=== PATIENT | female | born 1930 | race Caucasian/White ===

== ENCOUNTER 2017-06-25 15:43 | Observation (INO) | payer MEDICARE ==
[2017-06-25] MEDS ORDERED: MECLIZINE 12.5 MG TAB PO STA (16:48)
[2017-06-25] MEDS ORDERED: SODIUM CHLORIDE 0.9% 1,000 ML IV STA (16:48)
[2017-06-25] MEDS ORDERED: LORazepam 2 MG/ML INJ IV STA (16:48)
[2017-06-25 17:21] LABS: Basophils # (A) 0.1 k/uL (0-0.2); Basophils % (A) 1 %; CH 32.1; CHCM 34.3; Eosinophils # (A) 0.2 k/uL (0-0.7); Eosinophils % (A) 3 %; HCT 44.6 % (34.0-46.0); HDW 2.52; HGB 14.8 gm/dL (11.4-16.0); Luc # (Auto) 0.21; Luc % (Auto) 3; Lymphocytes # (A) 2.1 k/uL (1.0-4.8); Lymphocytes % (A) 30 %; MCH 31.1 pg (25.0-35.0); MCHC 33.1 g/dL (31.0-37.0); MCV 94.1 fL (80.0-100.0); Mean Platelet Volume 7.4; Monocytes # (A) 0.4 k/uL (0-1.0); Monocytes % (A) 6 %; Neutrophils # (A) 4.1 k/uL (1.3-7.7); Neutrophils % (A) 57 %; RBC 4.74 m/uL (3.80-5.40); RDW 14.3 % (11.5-15.5); WBC 7.2 k/uL (3.8-10.6); WBC (Perox) 7.32
[2017-06-25 17:26] LABS: ALT 34 U/L (9-52); AST 29 U/L (14-36); Alkaline Phosphatase 85 U/L (38-126); Anion Gap 11 mmol/L; Blood Urea Nitrogen 16 mg/dL (7-17); Calcium 10.3 mg/dL (8.4-10.2); Carbon Dioxide 26 mmol/L (22-30); Chloride 102 mmol/L (98-107); Glucose 109 mg/dL (74-99); Non-African American GFR(MDRD) >60 (>60 ml/min/1.73 sqM); Potassium 4.7 mmol/L (3.5-5.1); Sodium 139 mmol/L (137-145); Total Bilirubin 0.8 mg/dL (0.2-1.3); Total Protein 7.7 g/dL (6.3-8.2)
[2017-06-25] MEDS: ONDANSETRON 4 MG/2 ML VIAL IVP STA ×2 (17:26→17:45)
[2017-06-25 17:39] LABS: Creatine Kinase 141 U/L (30-135)
[2017-06-25 17:52] LABS: Troponin I <0.012 ng/mL (0.000-0.034)
[2017-06-25 17:59] LABS: Creatine Kinase MB 3.7 ng/mL (0.0-2.4)
--- NOTE | 2017-06-25 18:15 | CT ---
EXAMINATION TYPE: CT brain wo con DATE OF EXAM: 06/25/2017 COMPARISON: NONE HISTORY: Dizziness with nausea. CT DLP: 986.80 mGycm Automated exposure control for dose reduction was used. FINDINGS: There is cerebral cortical atrophy. There is no mass effect nor midline shift. There is no sign of in tracranial hemorrhage. There is minimal mucosal thickening in the posterior ethmoid sinus. Calvarium is intact. IMPRESSION: MILD ATROPHY. NO ACUTE INTRACRANIAL ABNORMALITY. MINIMAL ETHMOID SINUSITIS.
[2017-06-25] MEDS ORDERED: hydrALAZINE HCL 20 MG/ML 1 ML VIAL IVP STA (19:59)
--- NOTE | 2017-06-25 19:59 | ED ---
Dizziness HPI - General Chief Complaint: Dizziness Stated Complaint: HTN dizziness Time Seen by Provider: 06/25/17 16:43 Source: patient Mode of arrival: wheelchair Limitations: no limitations - History of Present Illness Initial Comments: This 86-year-old white female presents with a complaint of it dizziness. He states that it as a spinning type of sensation. She is unsure if it is related to head movement or if it is positional. She states that it came on shortly prior to arrival while she was at the dentist office. It is associated with some nausea but no vomiting. She denies any chest pain, shortness breath, or fevers. She does have a remote history of vertigo but none recently. She states that it was fairly severe and slightly improved currently. She does have some mild generalized weakness but denies any focal weakness. No other complaints or modifying factors. - Related Data Home Medications Medication Instructions Recorded Confirmed Aspirin 162 mg PO DAILY 06/25/17 06/25/17 Ti/D3/Mag11/Zinc/Wood Web Weaving Machine Operator/Noah/Bor 1 tab PO DAILY 06/25/17 06/25/17 [Caltrate 600+D Plus Tablet] Fosinopril Sodium [Monopril] 20 mg PO DAILY 06/25/17 06/25/17 Levothyroxine Sodium [Synthroid] 50 mcg PO DAILY 06/25/17 06/25/17 Lisinopril [Zestril] 20 mg PO DAILY 06/25/17 06/25/17 Metoprolol Tartrate [Lopressor] 50 mg PO QAM 06/25/17 06/25/17 Multivitamins, Thera [Multivitamin 1 tab PO DAILY 06/25/17 06/25/17 (formulary)] Potassium Chloride ER [K-Dur 10] 10 meq PO DAILY 06/25/17 06/25/17 Travoprost [Travatan Z 0.004%] 1 drop BOTH EYES HS 06/25/17 06/25/17 Vitamin E (Dl,Tocopheryl Acet) 400 unit PO DAILY 06/25/17 06/25/17 [Vitamin E] Allergies Allergy/AdvReac Type Severity Reaction Status Date / Time No Known Allergies Allergy Verified 06/25/17 16:17 Review of Systems ROS Statement: Those systems with pertinent positive or pertinent negative responses have been documented in the HPI. ROS Other: All systems not noted in ROS Statement are negative. Past Medical History Past Medical History: Hypertension History of Any Multi-Drug Resistant Organisms: None Reported Past Surgical History: No Surgical Hx Reported Additional Past Surgical History / Comment(s): bilateral knee surgery Past Psychological History: No Psychological Hx Reported Smoking Status: Never smoker Past Alcohol Use History: None Reported Past Drug Use History: None Reported General Exam - General Exam Comments Initial Comments: GENERAL: The patient is well nourished and well hydrated. VITAL SIGNS: Heart rate, blood pressure, respiratory rate reviewed as recorded in nurse's notes. EYES: Pupils are round and reactive. Extraocular movements are intact. No conjunctival / lid redness or swelling. ENT: No external evidence of injury, swelling, or ecchymosis. Airway is patent. Throat is clear. NECK: Nontender. No swelling or evidence of injury. No subcutaneous emphysema. Trachea is midline. No thyroid mass. HEART: Regular rate and rhythm. Good peripheral pulses. LUNGS/CHEST: Breath sounds clear and equal bilaterally. No rales, rhonchi, or wheezes. No ecchymosis, subcutaneous emphysema, or tenderness. ABDOMEN: Abdomen soft without tenderness. No palpable masses or organomegaly. No peritoneal signs. No abdominal wall swelling or ecchymosis. EXTREMITIES: No extremity tenderness. Normal muscle tone and function. No thoracolumbar tenderness. NEUROLOGIC: Sensation is grossly intact. Cranial nerve exam reveals face is symmetrical, tongue is midline, speech is clear. No focal weakness noted. SKIN: No abrasions or ecchymosis is noted. No induration or masses noted. PSYCHIATRIC: Alert and oriented. Appropriate behavior and judgment. Limitations: no limitations Course Vital Signs 06/25/17 06/25/17 06/25/17 15:50 17:46 18:26 Temperature 97.8 F Pulse Rate 65 68 67 Respiratory 16 18 16 Rate Blood Pressure 222/104 201/81 175/78 O2 Sat by Pulse 96 93 L 95 Oximetry 06/25/17 19:30 Temperature Pulse Rate 72 Respiratory 20 Rate Blood Pressure 186/85 O2 Sat by Pulse 94 L Oximetry Medical Decision Making - Medical Decision Making The patient was seen and examined. All diagnostics were reviewed. The EKG shows a normal sinus rhythm at a rate of 64. No acute ST-T wave changes are identified. The IL interval is 216, QRS duration is 92, and the QTc interval is 439. The patient also had a computed tomography scan of the brain which showed some mild ethmoid sinusitis but no acute process. She does relate that her sinuses have been mildly inflamed recently. The laboratory is fairly unremarkable. Overall, it is felt as though her symptoms are fairly consistent with benign positional vertigo. Other possibilities a vertical are possible as well. She did receive Ativan 0.5 mg IV, Zofran 8 no grams IV, and 25 mg of Antivert orally and was feeling improved on recheck. Unfortunately, she was unable to ambulate upon ambulation trial and it is felt as though she would require admission to the hospital. She is agreeable to this plan. Case is discussed with the PA, Kimberly, from internal medicine and she is agreeable to admission. In addition, the patient does have some significant elevation of her blood pressure and will be given some hydralazine intravenously. - Lab Data Result diagrams: 06/25/17 16:40 06/25/17 16:40 Lab Results 06/25/17 06/25/17 06/25/17 Range/Units 16:40 16:40 16:40 WBC 7.2 (3.8-10.6) k/uL RBC 4.74 (3.80-5.40) m/uL Hgb 14.8 (11.4-16.0) gm/dL Hct 44.6 (34.0-46.0) % MCV 94.1 (80.0-100.0) fL MCH 31.1 (25.0-35.0) pg MCHC 33.1 (31.0-37.0) g/dL RDW 14.3 (11.5-15.5) % Plt Count 287 (150-450) k/uL Neutrophils % 57 % Lymphocytes % 30 % Monocytes % 6 % Eosinophils % 3 % Basophils % 1 % Neutrophils # 4.1 (1.3-7.7) k/uL Lymphocytes # 2.1 (1.0-4.8) k/uL Monocytes # 0.4 (0-1.0) k/uL Eosinophils # 0.2 (0-0.7) k/uL Basophils # 0.1 (0-0.2) k/uL Sodium 139 (137-145) mmol/L Potassium 4.7 (3.5-5.1) mmol/L Chloride 102 (98-107) mmol/L Carbon Dioxide 26 (22-30) mmol/L Anion Gap 11 mmol/L BUN 16 (7-17) mg/dL Creatinine 0.76 (0.52-1.04) mg/dL Est GFR (MDRD) Af Amer >60 (>60 ml/min/1.73 sqM) Est GFR (MDRD) Non-Af >60 (>60 ml/min/1.73 sqM) Glucose 109 H (74-99) mg/dL Calcium 10.3 H (8.4-10.2) mg/dL Total Bilirubin 0.8 (0.2-1.3) mg/dL AST 29 (14-36) U/L ALT 34 (9-52) U/L Alkaline Phosphatase 85 (38-126) U/L Total Creatine Kinase 141 H (30-135) U/L CK-MB (CK-2) 3.7 H* (0.0-2.4) ng/mL CK-MB (CK-2) Rel Index 2.6 Troponin I <0.012 (0.000-0.034) ng/mL Total Protein 7.7 (6.3-8.2) g/dL Albumin 4.4 (3.5-5.0) g/dL Disposition Clinical Impression: Vertigo, Morbid obesity, Hypertensive crisis, Inability to walk Disposition: ADMITTED IP TO THIS [facility] Condition: Fair Time of Disposition: 19:58 Decision Date: 06/25/17 Decision Time: 19:59
[2017-06-25] MEDS ORDERED: LORazepam 2 MG/ML INJ IV PRN (20:05)
[2017-06-25] MEDS ORDERED: NALOXONE 0.4 MG/ML 1 ML VIAL IV PRN (20:05)
[2017-06-25] MEDS ORDERED: ACETAMINOPHEN TAB 325 MG TAB PO PRN (20:05)
[2017-06-25] MEDS ORDERED: ONDANSETRON 4 MG/2 ML VIAL IVP PRN (20:05)
[2017-06-25] MEDS ORDERED: MECLIZINE 12.5 MG TAB PO PRN (20:07)
[2017-06-25] MEDS ORDERED: hydrALAZINE HCL 20 MG/ML 1 ML VIAL IVP PRN (20:08)
[2017-06-25] MEDS ORDERED: METOPROLOL TARTRATE 25 MG TAB PO SCH (21:00)
[2017-06-25] MEDS ORDERED: LATANOPROST 0.005% OPHTH DROPS 2.5 ML BTL BOTH EYES SCH (21:00)
[2017-06-26] MEDS ORDERED: LEVOTHYROXINE 50 MCG TAB PO SCH (06:30)
[2017-06-26 07:11] LABS: Glucose,Whole Blood 88 mg/dL (75-99)
[2017-06-26] MEDS ORDERED: POTASSIUM CHLORIDE ER 10 MEQ TAB.ER.PRT PO SCH (09:00)
[2017-06-26] MEDS ORDERED: METOPROLOL TARTRATE 50 MG TAB PO SCH (09:00)
[2017-06-26] MEDS ORDERED: ASPIRIN 81 MG PO SCH (09:00)
[2017-06-26] MEDS ORDERED: OXYBUTYNIN XL 5 MG TAB.ER.24 PO SCH (09:00)
[2017-06-26] MEDS ORDERED: FOSINOPRIL SODIUM 20 MG PO SCH (09:00)
[2017-06-26] MEDS ORDERED: PANTOPRAZOLE 40 MG/10 ML VIAL IV SCH (09:00)
[2017-06-26] MEDS ORDERED: ENOXAPARIN 40 MG/0.4 ML SYRINGE SQ SCH (09:00)
[2017-06-26] MEDS ORDERED: LISINOPRIL 20 MG TAB PO SCH (09:00)
[2017-06-26 09:07] VITALS: BP 157/86; PULSE 68; RESP 20; TEMP 98.3
[2017-06-26] MEDS ORDERED: VITAMIN E (DL,TOCOPHERYL ACET) 400 UNIT CAP PO SCH (12:00)
[2017-06-26] MEDS ORDERED: MULTIVITAMINS, THERA 1 EACH TAB PO SCH (12:00)
[2017-06-26] MEDS ORDERED: CALCIUM CARB-VIT D 500MG-200UN 1 EACH TAB PO SCH (12:00)
[2017-06-27] MEDS ORDERED: PANTOPRAZOLE 40 MG TABLET PO SCH (07:30)
--- NOTE | 2017-06-27 15:41 | P.HPIM ---
History of Present Illness This 86-year-old white female presents with a complaint of it dizziness. He states that it as a spinning type of sensation. She is unsure if it is related to head movement or if it is positional. She states that it came on shortly prior to arrival while she was at the dentist office. It is associated with some nausea but no vomiting. She denies any chest pain, shortness breath, or fevers. She does have a remote history of vertigo but none recently. She states that it was fairly severe and slightly improved currently. She does have some mild generalized weakness but denies any focal weakness. No other complaints or modifying factors. Patient denied any earache denied any tinnitus tinnitus or fullness in the ears. By the time I valid the patient patient to have vertiginous symptoms resolved proximal. Patient probably has benign push vertigo patient will be discharged on when necessary meclizine. Review of Systems REVIEW OF SYSTEMS: CONSTITUTIONAL: No fever, no malaise, no fatigue. HEENT: No recent visual problems or hearing problems. Denied any sore throat. CARDIOVASCULAR: No chest pain, orthopnea, PND, no palpitations, no syncope. PULMONARY: No shortness of breath, no cough, no hemoptysis. GASTROINTESTINAL: No diarrhea, no nausea, no vomiting, no abdominal pain. Normoactive bowel sounds. NEUROLOGICAL: No headaches, no weakness, no numbness. HEMATOLOGICAL: Denies any bleeding or petechiae. GENITOURINARY: Denies any burning micturition, frequency, or urgency. MUSCULOSKELETAL/RHEUMATOLOGICAL: Denies any joint pain, swelling, or any muscle pain. ENDOCRINE: Denies any polyuria or polydipsia. The rest of the 14-point review of systems is negative. Past Medical History Past Medical History: Hypertension History of Any Multi-Drug Resistant Organisms: None Reported Past Surgical History: No Surgical Hx Reported, Appendectomy, Hysterectomy, Tonsillectomy Additional Past Surgical History / Comment(s): bilateral knee surgery Past Anesthesia/Blood Transfusion Reactions: No Reported Reaction Past Psychological History: No Psychological Hx Reported Smoking Status: Never smoker Past Alcohol Use History: None Reported Past Drug Use History: None Reported - Past Family History Mother Family Medical History: Myocardial Infarction ([place]) Father Family Medical History: No Reported History Medications and Allergies Home Medications Medication Instructions Recorded Confirmed Type Aspirin 162 mg PO DAILY 06/25/17 06/25/17 History Ti/D3/Mag11/Zinc/Package Drier/Noah/Bor 1 tab PO DAILY 06/25/17 06/25/17 History [Caltrate 600+D Plus Tablet] Levothyroxine Sodium [Synthroid] 50 mcg PO DAILY 06/25/17 06/25/17 History Lisinopril 40 mg PO DAILY 06/25/17 06/25/17 History Metoprolol Tartrate [Lopressor] 25 mg PO HS 06/25/17 06/25/17 History Metoprolol Tartrate [Lopressor] 50 mg PO QAM 06/25/17 06/25/17 History Multivitamins, Thera [Multivitamin 1 tab PO DAILY 06/25/17 06/25/17 History (formulary)] Oxybutynin Chloride [Ditropan XL] 5 mg PO DAILY 06/25/17 06/25/17 History Potassium Chloride ER [K-Dur 10] 10 meq PO DAILY 06/25/17 06/25/17 History Travoprost [Travatan Z 0.004%] 1 drop BOTH EYES HS 06/25/17 06/25/17 History Vitamin E (Dl,Tocopheryl Acet) 400 unit PO DAILY 06/25/17 06/25/17 History [Vitamin E] Allergies Allergy/AdvReac Type Severity Reaction Status Date / Time No Known Allergies Allergy Verified 06/25/17 16:17 Physical Exam PHYSICAL EXAMINATION: GENERAL: The patient is alert and oriented x3, not in any acute distress. Well developed, well nourished. HEENT: Pupils are round and equally reacting to light. EOMI. No scleral icterus. No conjunctival pallor. Normocephalic, atraumatic. No pharyngeal erythema. No thyromegaly. CARDIOVASCULAR: S1 and S2 present. No murmurs, rubs, or gallops. PULMONARY: Chest is clear to auscultation, no wheezing or crackles. ABDOMEN: Soft, nontender, nondistended, normoactive bowel sounds. No palpable organomegaly. MUSCULOSKELETAL: No joint swelling or deformity. EXTREMITIES: No cyanosis, clubbing, or pedal edema. NEUROLOGICAL: Gross neurological examination did not reveal any focal deficits. SKIN: No rashes. Results CBC & Chem 7: 06/25/17 16:40 06/25/17 16:40 Thrombosis Risk Factor Assmnt - Choose All That Apply Any of the Below Risk Factors Present?: No Other Risk Factors: No Other congenital or acquired thrombophilia - If yes, enter type in comment: No Thrombosis Risk Factor Assessment Level: Very Low Risk Assessment and Plan Plan: #1 vertigo: Probable benign push vertigo patient will be discharged with when necessary meclizine symptoms completely resolved. #2 hypertension: Well-controlled blood pressures and SCOTTIE inhibitor which she'll continue. #3 hypothyroidism #4 glaucoma for which patient uses travoprost which she can continue Patient will be discharged today.
--- NOTE | 2017-06-27 15:42 | P.DS ---
Providers Date of admission: 06/25/17 20:05 Attending physician: Valente Henry Primary care physician: Mike Escamilla [facility] Course: Please refer to my HPI Patient Condition at Discharge: Fair Plan - Discharge Summary New Discharge Prescriptions: No Action Vitamin E (Dl,Tocopheryl Acet) [Vitamin E] 400 unit PO DAILY Aspirin 162 mg PO DAILY Potassium Chloride ER [K-Dur 10] 10 meq PO DAILY Multivitamins, Thera [Multivitamin (formulary)] 1 tab PO DAILY Levothyroxine Sodium [Synthroid] 50 mcg PO DAILY Ti/D3/Mag11/Zinc/Grocery Supervisor/Noah/Bor [Caltrate 600+D Plus Tablet] 1 tab PO DAILY Metoprolol Tartrate [Lopressor] 50 mg PO QAM Travoprost [Travatan Z 0.004%] 1 drop BOTH EYES HS Oxybutynin Chloride [Ditropan XL] 5 mg PO DAILY Metoprolol Tartrate [Lopressor] 25 mg PO HS Lisinopril 40 mg PO DAILY Discharge Medication List Aspirin 162 mg PO DAILY 06/25/17 [History] Ti/D3/Mag11/Zinc/Grocery Supervisor/Noah/Bor [Caltrate 600+D Plus Tablet] 1 tab PO DAILY 06/25 [History] Levothyroxine Sodium [Synthroid] 50 mcg PO DAILY 06/25/17 [History] Lisinopril 40 mg PO DAILY 06/25/17 [History] Metoprolol Tartrate [Lopressor] 25 mg PO HS 06/25/17 [History] Metoprolol Tartrate [Lopressor] 50 mg PO QAM 06/25/17 [History] Multivitamins, Thera [Multivitamin (formulary)] 1 tab PO DAILY 06/25/17 [History ] Oxybutynin Chloride [Ditropan XL] 5 mg PO DAILY 06/25/17 [History] Potassium Chloride ER [K-Dur 10] 10 meq PO DAILY 06/25/17 [History] Travoprost [Travatan Z 0.004%] 1 drop BOTH EYES HS 06/25/17 [History] Vitamin E (Dl,Tocopheryl Acet) [Vitamin E] 400 unit PO DAILY 06/25/17 [History] Follow up Appointment(s)/Referral(s): Mike Escamilla DO [Primary Care Provider] - 06/28/17 3:40 pm Patient Instructions/Handouts: Vertigo (DC), Hypertensive Crisis (DC) Discharge/Stand Alone Forms: Work/School Release, Work/Release Restrictions Form Discharge Disposition: HOME SELF-CARE
== END 2017-06-26 13:44 | disposition home or self-care (01) ==
LOC: EC 15:43 → 4MS4W 20:05 → INTOOBSV 20:05
PROVIDERS: ADMIT Hospitalist; ATTEND Hospitalist
DX: I16.9 Hypertensive crisis, unspecified (principal); R42 Dizziness and giddiness; I10 Essential (primary) hypertension; R53.1 Weakness; Z79.899 Other long term (current) drug therapy; Z79.82 Long term (current) use of aspirin; E66.01 Morbid (severe) obesity due to excess calories; Z68.42 Body mass index [BMI] 45.0-49.9, adult; Z82.49 Family history of ischemic heart disease and other diseases of the circulatory system; H40.9 Unspecified glaucoma; E03.9 Hypothyroidism, unspecified
CPT/HCPCS: 96372; 96375 ×2; 96374; 99285; 36415; 93005; 80053; 82550; 82553; 84484; 85025; 70450; G0378 ×2; J2060; J0360; J2405; J1650; C9113

== ENCOUNTER → 2017-08-20 | Outpatient (CLI) | payer MEDICARE ==
--- NOTE | 2017-08-20 13:07 | ECHOF ---
Referral Reason:Cardiac Murmur R01.1, I10 Hypertension MEASUREMENTS -------- HEIGHT: 157.5 cm WEIGHT: 107.0 kg BP: 179/83 RVIDd: 3.1 cm (< 3.3) IVSd: 1.2 cm (0.6 - 1.1) LVIDd: 5.5 cm (3.9 - 5.3) LVPWd: 1.2 cm (0.6 - 1.1) IVSs: 1.4 cm LVIDs: 3.8 cm LVPWs: 1.5 cm LAESV Index (A-L): 42.17 ml/m Ao Diam: 3.9 cm (2.0 - 3.7) AV Cusp: 0.7 cm (1.5 - 2.6) LA Diam: 4.2 cm (2.7 - 3.8) MV E Carlos: 0.75 m/s MV DecT: 325 ms MV A Carlos: 1.41 m/s MV E/A Ratio: 0.54 AV maxP.10 mmHg AV meanP.64 mmHg AR PHT: 1087 ms RAP: 5.00 mmHg RVSP: 20.86 mmHg FINDINGS -------- Sinus rhythm. This was a technically adequate study. The left ventricular size is normal. There is mild concentric left ventricular hypertrophy. Overa ll left ventricular systolic function is normal with, an EF between 55 - 60 %. The right ventricle is normal in size and function. LA is severely dilated >40 ml/m2 The right atrium was not well visualized. Aortic valve is trileaflet and is moderately thickened. There is mild aortic regurgitation. The a ortic pressure half-time by doppler is 1087ms. There is mild aortic stenosis present. Aortic valv e gradients may be under-represented due to off axis images. Moderate mitral annular calcification present. Mild mitral regurgitation is present. Mild tricuspid regurgitation present. Right ventricular systolic pressure is normal at < 35 mmHg. The pulmonic valve was not well visualized. There is no pulmonic regurgitation present. The aortic root size is normal. IVC Not well visulized. There is a small, generalized pericardial effusion present. CONCLUSIONS -------- 1. Sinus rhythm. 2. This was a technically adequate study. 3. There is mild concentric left ventricular hypertrophy. 4. Overall left ventricular systolic function is normal with, an EF between 55 - 60 %. 5. LA is severely dilated >40 ml/m2 6. Aortic valve is trileaflet and is moderately thickened. 7. There is mild aortic regurgitation. 8. There is mild aortic stenosis present. 9. Aortic valve gradients may be under-represented due to off axis images. 10. Moderate mitral annular calcification present. 11. Mild mitral regurgitation is present. 12. Mild tricuspid regurgitation present. 13. Right ventricular systolic pressure is normal at < 35 mmHg. 14. There is no pulmonic regurgitation present. 15. The aortic root size is normal. 16. There is a small, generalized pericardial effusion present. SLASHER: Lee Villaseñor RDCS
== END | disposition home or self-care (01) ==
LOC: RADECHMAIN 11:12
PROVIDERS: ATTEND Family Medicine
DX: I08.3 Combined rheumatic disorders of mitral, aortic and tricuspid valves (principal); I31.3 Pericardial effusion (noninflammatory)
CPT/HCPCS: 93306

== ENCOUNTER → 2017-08-21 | Outpatient (CLI) | payer MEDICARE ==
--- NOTE | 2017-08-21 15:02 | XR ---
2 view abdomen HISTORY: Diarrhea 2 views of the abdomen on 3 images No comparisons Lung bases are clear. There is a spinal curvature. Degenerative disc changes in the visualized spine. Calcifications are superimposed over the left kidney, possible left-sided nephrolithiasis with mid p ole calcification measuring approximately 5 mm, lower pole approximately 5 to 6 mm. No bowel obstruct ion or pneumoperitoneum. Probable vascular calcifications within the pelvis. IMPRESSION: Left-sided nephrolithiasis.
== END ==
LOC: RADXRYALE 11:36
PROVIDERS: ATTEND Physician Assistant Medical
DX: N20.0 Calculus of kidney (principal)
CPT/HCPCS: 74020

== ENCOUNTER → 2020-09-21 | Outpatient (CLI) | payer MEDICARE ==
--- NOTE | 2020-09-21 15:56 | XR ---
EXAMINATION TYPE: XR ankle complete LT DATE OF EXAM: 09/21/2020 COMPARISON: None HISTORY: Pain, fall TECHNIQUE: Three-view left ankle FINDINGS: There is prominent soft tissue swelling over the lateral malleolus. There appears to be an avulsion of the inferior lateral malleolus. The ankle mortise is intact. No additional areas suspicio us for fracture are evident. Large plantar and Achilles tendon calcaneal heel spurs are present. IMPRESSION: 1. Suspected avulsion inferior lateral torsion lateral malleolus with prominent overlying soft tissu e swelling.
== END | disposition home or self-care (01) ==
LOC: RADXRYALE 14:52
PROVIDERS: ATTEND Physician Assistant Medical
DX: M25.572 Pain in left ankle and joints of left foot (principal)

== ENCOUNTER → 2022-05-05 | Outpatient (CLI) | payer MEDICARE ==
--- NOTE | 2022-05-05 12:04 | XR ---
EXAMINATION TYPE: XR chest 2V DATE OF EXAM: 05/05/2022 COMPARISON: 04/24/2014 HISTORY: Shortness of breath TECHNIQUE: Frontal and lateral views of the chest are obtained. FINDINGS: Scattered senescent parenchymal changes noted. Hyperinflation compatible with COPD. No evidence for infiltrate. No evidence for atelectasis. Heart size is stable. Mediastinal structures are stable and grossly unremarkable. No evidence for hilar prominence. Degenerative changes dorsal spine. IMPRESSION: 1. No evidence for acute pulmonary disease.
== END | disposition home or self-care (01) ==
LOC: RADXRYALE 11:25
PROVIDERS: ATTEND Physician Assistant Medical
DX: R01.1 Cardiac murmur, unspecified (principal)
CPT/HCPCS: 71046